=== PATIENT | male | born 1975 | race Caucasian/White ===

== ENCOUNTER 2023-08-28 14:35 | Outpatient (CLI) | payer BC | END 2023-08-28 23:59 | disposition home or self-care (01) | LOC: MRI 14:35 | PROVIDERS: ATTEND Family Medicine Sports Medicine | DX: S43.431A Superior glenoid labrum lesion of right shoulder, initial encounter (principal); M25.511 Pain in right shoulder; M75.110 Incomplete rotator cuff tear or rupture of unspecified shoulder, not specified as traumatic; M75.111 Incomplete rotator cuff tear or rupture of right shoulder, not specified as traumatic; R60.9 Edema, unspecified; M19.011 Primary osteoarthritis, right shoulder; X58.XXXA Exposure to other specified factors, initial encounter; Y93.89 Activity, other specified; Y92.89 Other specified places as the place of occurrence of the external cause; Y99.8 Other external cause status; Z98.890 Other specified postprocedural states | CPT/HCPCS: 73221 ==